=== PATIENT | male | born 1945 | race Caucasian/White ===

== ENCOUNTER 2024-09-04 09:31 | Outpatient (AMB) | payer MEDICARE, OTHER, SELFPAY ==
--- NOTE | 2024-09-04 09:41 | HO.NEPHOV ---
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 He has history of vascular disease including endovascular repair for abdominal aortic aneurysm. He has history of TREMAINE following cholesterol embolism status post EVAR. His serum creatinine has improved with time and has been stable. His blood pressure has been at goal on current medication regimen. He claims to be compliant with his medications. He does not take any medications [id number]. He denies nausea, vomiting, diarrhea, chest pain, shortness of breath proximal nocturnal dyspnea, orthopnea, pedal edema or orthostatic symptoms. He is regularly followed up in [place] clinic in [facility]. He has had blood work done recently in [place], which were not available at the time of this office visit. [facility] Medical History (Updated 09/04/24 @ 11:58 by Teto Karimi MD) Renal artery stenosis Vitamin D deficiency Chronic kidney disease, stage 3b Hypertension Surgical History (Updated 09/04/24 @ 09:46 by Rubina Obregon MA) History of cholecystectomy S/P AAA repair Social History (Updated 09/04/24 @ 09:46 by Rubina Obregon MA) Alcohol intake: former Patient Tobacco Use Status: Former Tobacco user Use of substances other than those prescribed or required for medical reasons: No Review of Systems Const All systems reviewed & are unremarkable except as noted in HPI and below Physical Exam Vital Signs: Last Vital Signs Pulse 62 09/04/24 09:44 BP 122/50 L 09/04/24 09:44 Pulse Ox 98 09/04/24 09:44 Oxygen Delivery Method Room Air 09/04/24 09:44 BMI result Body Mass Index 25.7 Const General: comfortable and no acute distress Orientation/consciousness: patient oriented x3 HEENT Head: Yes normocephalic Mouth: Normal oral and palatal mucosa present Eyes EOM: EOMs intact bilaterally Neck Neck: Yes supple Resp Auscultation: clear to auscultation bilaterally Cardio Jugular venous distension: no JVD Rate: regular rate GI Palpation (GI): Soft to palpation Auscultation: normal bowel sounds General: Yes no CVA tenderness Back/Spine/Pelvis Back: no CVA tenderness Skin General skin exam: no rashes or lesions noted Neuro General: patient oriented x3 and moves all extremities Extrem General: Yes no pedal edema Results Reviewed Nephrology Results: No Data to Display Assessment & Plan Assessment & Plan (1) Hypertension: Code(s): I10 - Essential (primary) hypertension Category: Medical Qualifiers: Hypertension type: renovascular hypertension Qualified Code(s): I15.0 - Renovascular hypertension (2) CKD stage 3a, GFR 45-59 ml/min: Code(s): N18.31 - Chronic kidney disease, stage 3a Category: Medical Plan Though his renal functions worsened status post EVAR for AAA, it recovered with time and has been stable for a long time. 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 His blood pressure is maintained at goal on current medication regimen. He does not take any nonsteroidal anti-inflammatories. He maintains good hydration. He should be on a low-sodium diet. I did not make any medication changes today. All his questions and concerns were addressed. Follow-up appointment given. Orders: Orders Creatinine 8 Months I10 - Essential (primary) hypertension, N18.31 - Chronic kidney disease, stage 3a Calcium 8 Months I10 - Essential (primary) hypertension, N18.31 - Chronic kidney disease, stage 3a Complete Blood Count Auto Diff 8 Months I10 - Essential (primary) hypertension, N18.31 - Chronic kidney disease, stage 3a Electrolytes 8 Months I10 - Essential (primary) hypertension, N18.31 - Chronic kidney disease, stage 3a Blood Urea Nitrogen 8 Months I10 - Essential (primary) hypertension, N18.31 - Chronic kidney disease, stage 3a Parathyroid Hormone Intact 8 Months I10 - Essential (primary) hypertension, N18.31 - Chronic kidney disease, stage 3a Vitamin D 25-OH Total 8 Months I10 - Essential (primary) hypertension, N18.31 - Chronic kidney disease, stage 3a Coding Level of Care Code Est Pt Level 4 (66891) Diagnoses Renovascular hypertension I15.0 Hypertension type: renovascular hypertension CKD stage 3a, GFR 45-59 ml/min N18.31
[2024-09-04 09:44] VITALS: BP 122/50; PULSE 62; O2SAT 98; BMI 25.7
== END 2024-09-04 10:14 | disposition home or self-care (01) ==
LOC: HO.HKAS 09:31
PROVIDERS: Visit Provider Internal Medicine Nephrology
DX: I15.0 Renovascular hypertension (principal); N18.31 Chronic kidney disease, stage 3a
CPT/HCPCS: 99213

== ENCOUNTER → 2024-09-04 09:31 | Outpatient (BNVA) | payer MEDICARE, OTHER, SELFPAY | PROVIDERS: Visit Provider Internal Medicine Nephrology | DX: I15.0 Renovascular hypertension (principal); N18.31 Chronic kidney disease, stage 3a | CPT/HCPCS: 99212 ==

== ENCOUNTER 2025-05-07 09:39 | Outpatient (REF) | payer OTHER, MEDICARE, SELFPAY ==
--- OUTSIDE RECORDS SUMMARY | 2025-05-07 10:38 | XMS_ITS | Clinical Summary ---
Author Organization [facility] Address [address] [address] [place] [address] Phone Care Team Providers Care Hub Associate Name Role Phone No, Pcp Primary Care Provider [phone] Allergies No known active allergies Medications aspirin (ST SANTIAGO) 81 MG EC tablet Take 1 tablet by mouth 1 (one) time each day Active cholecalciferol (VITAMIN D-3 SUPER STRENGTH) 50 MCG (2000 UT) tablet Take 1 tablet by mouth 1 (one) time each day Active metoprolol tartrate (LOPRESSOR) 50 MG tablet Take 1 tablet by mouth 2 (two) times a day 07/08/2014 Active NIFEdipine CC (ADALAT CC) 30 MG 24 hr tablet Take 1 tablet by mouth 1 (one) time each day 07/08/2014 Active pravastatin (PRAVACHOL) 80 MG tablet Take 1 tablet by mouth 1 (one) time each day Active Active Problems Problem Noted Date Diagnosed Date Abdominal aortic aneurysm 10/05/20232022 Arterial embolism 10/05/2023 10/05/2023 Overview (10/05/2023): biopsy proven cholesterol embolism to kidneys Biliary calculus 10/05/2023 10/05/2023 Chronic obstructive pulmonary disease 10/05/2023 10/05/2023 Epigastric pain 10/05/2023 10/05/2023 Gallbladder pain 10/05/2023 10/05/2023 Neuropathy of lower limb 10/05/2023 023 Overview (10/05/2023): left Obese class I 10/05/2023 10/05/2023 Prolapsed lumbar intervertebral disc 10/05/2023 10/05/2023 Hypertension 09/27/2021 Renal artery stenosis 09/27/2021 Stage 3b chronic kidney disease 03/29/2021 Atherosclerosis of renal artery 03/28/2021 Benign hypertensive renal disease 03/28/2021 Chronic kidney disease stage 4 03/28/2021 Disorder of vitamin D 03/28/2021 Chronic back pain 12/23/2012 10/05/2023 Cigarette smoker 12/23/2012 10/05/2023 Overview (10/05/2023): up to 45 years1 1/2 to 2 ppd X 30years Current drinker 12/23/2012 10/05/2023 Overview (10/05/2023): 2 glasses of beer per day X40 years Diverticulosis of sigmoid colon 12/23/2012 10/05/2023 H/O: Disorder 12/23/2012 10/05/2023 Hyperlipidemia 12/23/2012 10/05/2023 Spinal stenosis 12/23/2012 10/05/2023 Overview (10/05/2023): T5-T6 & T8-T9 Immunizations Immunization Administration Dates Next Due Influenza, Unspecified 09/19/2012 Pneumococcal Polysaccharide 10/26/2013, 2 Tdap 09/26/2012 Family History Medical History Relation Comments Cancer Mother Breast Cancer/pa ncreatic Diabetes Mother Hypertension Mother Diabetes Sibling 1 Cancer Sibling 2 Relation Status Comments Father Mother Alive Sibling 1 Sibling 2 Social History Tobacco Use Types Packs/Day Years Used Date Smoking Tobacco: Former Cigarettes Q uit: 11/26/2013 Smokeless Tobacco: Former Tobacco Cessation:Counseling Given: No Alcohol Use Standard Drinks/Week Comments Yes 0 (1 standard drink = 0.6 oz pure alcohol) Alcoholic Drinks/day: 1-2 drinks per day Sex and Gender Information Value Date Recorded Sex Assigned at Not on file Legal Sex Male 5:07 PM EST Gender Identity Not on file Sexual Orientation Not on file Last Filed Vital Signs Vital Sign Reading Time Taken Comments Blood Pressure 120/64 10/05/2023 10:46 AM EST Pulse 62 10/05/2023 10:46 AM EST Temperature - - Respiratory Rate - - Oxygen Saturation 97% 10/05/2023 10:46 AM EST Inhaled Oxygen Concentration - - Weight 86.6 kg (191 lb) 10/05/2023 10:46 AM EST Height 175.3 cm (5' 9 ) 02/01/2023 1:39 PM EST Body Mass Index 28.21 02/01/2023 1:39 PM EST Plan of Treatment Health Maintenance Due Date Last Done Comments Pneumococcal Vaccine: 50+ Years (3 of 3 - PCV) 10/26/2014 10/26/2013, 09/19/2012 Influenza Vaccine (Season Ended) 2025 09/19/2012 Pneumococcal Vaccine: Peds (0 to 5 Years) and At-Risk Patients (6 to 49 Years) Discontinued 10/26/2013, 09/19/2012 Hepatitis B Vaccine Aged Out No longe r eligible based on patient's age to complete this topic Insurance [employer] Medicare Medicare Care Teams Hub Associate Relationship Specialty Start Date End Date No, Pcp PCP - General 03/07/22
[2025-05-07 17:29] LABS: MANUAL DIFF FLAG NO
[2025-05-07 17:41] LABS: Basophils Absolute Auto 0.1 X10*3/uL (0.0-0.2); Basophils Percent Auto 0.9 % (0-2); Eosinophils Absolute Auto 0.4 X10*3/uL (0.0-0.4); Eosinophils Percent Auto 3.5 % (0-4); Hematocrit 33.7 % (42.0-52.0); Hemoglobin 10.7 g/dl (14.0-18.0); Imm Gran Abs Auto 0.03 X10*3/uL (0.00-0.03); Imm Gran Pct Auto 0.3 % (0.0-0.4); Lymphocytes Absolute Auto 1.2 X10*3/uL (1.2-4.9); Lymphocytes Percent Auto 12.4 % (20-40); Mean Corpuscular HGB Conc 31.8 g/dl (31.0-36.0); Mean Corpuscular Hemoglobin 29.4 pg (27.0-33.0); Mean Corpuscular Volume 92.6 fL (80.0-98.0); Mean Platelet Volume 11.4 fL (9.4-12.4); Monocytes Absolute Auto 0.6 X10*3/uL (0.1-1.2); Monocytes Percent Auto 5.8 % (2-11); Neutrophils Absolute Auto 7.7 x10*3/uL (2.0-8.3); Neutrophils Percent Auto 77.1 % (45-73); Platelet Count 235 X10*3/uL (160-400); Red Blood Count 3.64 X10*6/uL (4.60-5.80); Red Cell Distribution Width 14.5 % (11.0-16.0)
[2025-05-07 17:52] LABS: Anion Gap 12 (12-20); Blood Urea Nitrogen 28 mg/dL (9-16); Carbon Dioxide 22 mmol/L (22-29); Chloride 110 mmol/L (96-108); Estimated Glomerular Filt Rate 39; Potassium 4.4 mmol/L (3.3-5.1); Sodium 140 mmol/L (135-145)
[2025-05-07 18:09] LABS: Vitamin D 25-OH Total 51.8 ng/mL (>30)
== END 2025-05-07 09:40 | disposition home or self-care (01) ==
LOC: HO.HKASLDS 09:39
PROVIDERS: Visit Provider Internal Medicine Nephrology
DX: I12.9 Hypertensive chronic kidney disease with stage 1 through stage 4 chronic kidney disease, or unspecified chronic kidney disease (principal); N18.31 Chronic kidney disease, stage 3a
CPT/HCPCS: 36415; 80051; 82306; 82310; 82565; 83970; 84520; 85025

== ENCOUNTER 2025-05-14 13:41 | Outpatient (AMB) | payer OTHER, MEDICARE, SELFPAY ==
--- NOTE | 2025-05-14 14:18 | HO.NEPHOV_ITS ---
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 He has history of vascular disease including endovascular repair for abdominal aortic aneurysm. He has history of TREMAINE following cholesterol embolism status post EVAR. His serum creatinine has improved with time and has been stable. His blood pressure has been at goal on current medication regimen. He claims to be compliant with his medications. He does not take any medications [id number]. He denies nausea, vomiting, diarrhea, chest pain, shortness of breath proximal nocturnal dyspnea, orthopnea, pedal edema or orthostatic symptoms. [facility] Medical History (Updated 09/04/24 @ 11:58 by Teto Karimi MD) Renal artery stenosis Vitamin D deficiency Chronic kidney disease, stage 3b Hypertension Surgical History History of cholecystectomy S/P AAA repair Social History Alcohol intake: former Patient Tobacco Use Status: Former Tobacco user Review of Systems Const All systems reviewed & are unremarkable except as noted in HPI and below Physical Exam Vital Signs: Last Vital Signs Pulse 61 05/14/25 14:19 BP 120/60 05/14/25 14:19 Pulse Ox 97 05/14/25 14:19 Oxygen Delivery Method Room Air 05/14/25 14:19 BMI result Body Mass Index 25.4 Const General: comfortable and no acute distress Orientation/consciousness: patient oriented x3 HEENT Head: Yes normocephalic Mouth: Normal oral and palatal mucosa present Eyes EOM: EOMs intact bilaterally Neck Neck: Yes supple Resp Auscultation: clear to auscultation bilaterally Cardio Jugular venous distension: no JVD Rate: regular rate GI Palpation (GI): Soft to palpation Auscultation: normal bowel sounds General: Yes no CVA tenderness Back/Spine/Pelvis Back: no CVA tenderness Skin General skin exam: no rashes or lesions noted Neuro General: patient oriented x3 and moves all extremities Extrem General: Yes no pedal edema Results Reviewed Nephrology Results: Hgb, (14.0-18.0) 10.7 g/dl L 05/07/25 WBC, (4.8-10.8) 10.0 X10*3/uL 05/07/25 Plt Count, (160-400) 235 X10*3/uL 05/07/25 Sodium, (135-145) 140 mmol/L 05/07/25 Potassium, (3.3-5.1) 4.4 mmol/L 05/07/25 Chloride, (96-108) 110 mmol/L H 05/07/25 Carbon Dioxide, (22-29) 22 mmol/L 05/07/25 BUN, (9-16) 28 mg/dL H 05/07/25 Creatinine, (0.5-1.4) 1.71 mg/dL H 05/07/25 Calcium, (8.4-10.2) 9.0 mg/dL 05/07/25 PTH Intact, (8.7-77.1) 111.0 pg/mL H 05/07/25 Assessment & Plan Assessment & Plan (1) CKD stage 3a, GFR 45-59 ml/min: Code(s): N18.31 - Chronic kidney disease, stage 3a Category: Medical (2) Hypertension: Code(s): I10 - Essential (primary) hypertension Category: Medical Qualifiers: Hypertension type: renovascular hypertension Qualified Code(s): I15.0 - Renovascular hypertension Plan Though his renal functions worsened status post EVAR for AAA, it recovered with time and has been stable for a long time. 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 His blood pressure is maintained at goal on current medication regimen. He does not take any nonsteroidal anti-inflammatories. He maintains good hydration. He should be on a low-sodium diet. I did not make any medication changes today. All his questions and concerns were addressed. Follow-up appointment given. Orders: Orders Blood Urea Nitrogen 6 Months I15.0 - Renovascular hypertension, N18.31 - Chronic kidney disease, stage 3a Creatinine 6 Months I15.0 - Renovascular hypertension, N18.31 - Chronic kidney disease, stage 3a Electrolytes 6 Months I15.0 - Renovascular hypertension, N18.31 - Chronic kidney disease, stage 3a Coding Level of Care Code Est Pt Level 4 (80662) Diagnoses CKD stage 3a, GFR 45-59 ml/min N18.31 Renovascular hypertension I15.0 Hypertension type: renovascular hypertension
[2025-05-14 14:19] VITALS: BP 120/60; PULSE 61; O2SAT 97; BMI 25.4
--- OUTSIDE RECORDS SUMMARY | 2025-05-14 14:50 | XMS_ITS | Clinical Summary ---
Author Organization [facility] Address [address] [address] [place] [address] Phone Care Team Providers Care Director Of Parks And Recreation Name Role Phone No, Pcp Primary Care [...] patient's age to complete this topic Insurance [employer] Medicare Medicare Care Teams Director Of Parks And Recreation Relationship Specialty Start Date End Date No, Pcp PCP - General 03/07/22
== END 2025-05-14 14:37 | disposition home or self-care (01) ==
PROVIDERS: Visit Provider Internal Medicine Nephrology
DX: I12.9 Hypertensive chronic kidney disease with stage 1 through stage 4 chronic kidney disease, or unspecified chronic kidney disease (principal); N18.31 Chronic kidney disease, stage 3a
CPT/HCPCS: 99214

== ENCOUNTER → 2025-05-14 13:41 | Outpatient (BNVA) | payer OTHER, MEDICARE, SELFPAY | PROVIDERS: Visit Provider Internal Medicine Nephrology ==